=== PATIENT | male | born 1960 | race Caucasian/White ===

== ENCOUNTER 2018-03-24 14:36 | Emergency (ER) | payer OTHER ==
[~2018-03-24 14:36] MED LIST: CARBXR200 PO; DILA100C PO; HYDR-2768 PO; LISI40TA PO; LORT5TAB PO; NEUR600T PO; OMEP20CA5 PO; ROSU20 PO
[2018-03-24 14:43] VITALS: BP 174/99; PULSE 84; RESP 20; TEMP 98.6; O2SAT 98
[2018-03-24] MEDS ORDERED: ZIDOVUDINE 100 MG CAP PO ONE (15:45)
[2018-03-24] MEDS ORDERED: LOPINAVIR/RITONAVIR 200 MG/50 MG TAB PO ONE (15:45)
[2018-03-24] MEDS ORDERED: RETR100C PO (15:48)
[2018-03-24] MEDS ORDERED: LAMI150 PO (15:48)
[2018-03-24] MEDS ORDERED: KALETRA200 PO (15:48)
--- NOTE | 2018-03-24 15:57 | PD ---
HPI Chief Complaint: Exposure to Blood/Body Fluids Time Seen by Provider: 14:51 Travel History International Travel<30 days: No Contact w/Intl Traveler<30days: No Traveled to known affect area: No History of Present Illness HPI 57-year-old male came to the emergency room with history of being accidentally exposed to an open needle at work. Patient works at the [employer] at the [facility]. 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 He was trying to empty the sharps container when he saw something poking out that seem like a tape. He tried to push it down and there was an open needle that punctured his finger. The nurse at the [facility] asked him to come to the emergency room for prophylaxis. Patient says this happened about an hour to 2 hours ago. No history of HIV. The charge nurse called hospice and found out that the patient was hep C positive. He got punctured on his right index finger. PFSH Past Medical History Narrative Medical List of his past medical, surgical, social and family history is reviewed from the nursing note Blood Disorders: No Cancer: No Cardiovascular Problems: Yes High Cholesterol: Yes Diabetes: No Endocrine: No Gastrointestinal Disorders: Yes GERD: Yes Genitourinary: No Headaches: Yes Hypertension: Yes Immune Disorder: No Implanted Vascular Access Dvce: No Musculoskeletal: Yes Neurologic: Yes Psychiatric: No Reproductive: No Respiratory: Yes (PNEUMONIA) Seizures: Yes (epilepsy) Influenza Vaccination: Yes Past Surgical History Abdominal Surgery: Yes (HERNIA REPAIR LEFT) Other Surgery: Yes (HERNIA REPAIR X 2) Social History Alcohol Use: Yes (2 BEERS DAILY) Tobacco Use: No Substance Use: No Allergies-Medications (Allergen,Severity, Reaction): Coded Allergies: No Known Allergies (Verified Allergy, Unknown, 03/24/18) Comments No known drug allergies. Reported Meds & Prescriptions Reported Meds & Active Scripts Active Kaletra (Lopinavir/Ritonavir) 200-50 Mg Tab 2 Tab PO Q12HR Fill this prescription for a 23 day supply of Kaletra ONLY if advised to do so by either Employee Health OR the Emergency Department. Retrovir (Zidovudine) 100 Mg Cap 300 Mg PO Q12HR *Fill this 5 day prescription first and begin taking Retrovir 12 hours after the first dose received in the Emergency Department as prescribed.* Epivir (Lamivudine) 150 Mg Tab 150 Mg PO BID *Fill this prescription for a 23 day supply of Epivir ONLY if advised to do so by either Employee Health OR the Emergency Department.* Kaletra (Lopinavir/Ritonavir) 200-50 Mg Tab 2 Tab PO Q12HR Fill this 5 day prescription first & begin taking Kaletra 12 hours after the first dose received in the Emergency Department as prescribed. Retrovir (Zidovudine) 100 Mg Cap 300 Mg PO Q12HR *Fill this 5 day prescription first and begin taking Retrovir 12 hours after the first dose received in the Emergency Department as prescribed.* Epivir (Lamivudine) 150 Mg Tab 150 Mg PO BID *Fill this 5 day prescription first and begin taking Epivir 12 hours after the first dose received in the Emergency Department as prescribed.* Lortab 5/500 (Acetaminophen/Hydrocodone Bitart) 5 Mg/500 Mg Tab 1-2 Tab PO Q6HPRN Reported Crestor (Rosuvastatin Calcium) 20 Mg Tab 20 Mg PO HS Prinivil 40 mg (Lisinopril) 40 Mg Tab 40 Mg PO DAILY Hctz (Hydrochlorothiazide) 25 Mg Tab 25 Mg PO DAILY Prilosec 20 mg (Omeprazole) 20 Mg Capcr 20 Mg PO DAILY Neurontin (Gabapentin) 600 Mg Tab 600 Mg PO TID Tegretol-Xr (Carbamazepine) 200 Mg Tab 200 Mg PO TID Dilantin Kapseals (Phenytoin Sodium) 100 Mg Cap 100 Mg PO 5 TIMES A DAY Narrative Medication List of his home medications reviewed from the nursing note. Review of Systems Except as stated in HPI: all other systems reviewed are Neg Physical Exam Narrative GENERAL: Awake, alert, no obvious distress SKIN: Focused skin assessment warm/dry. Right index finger is wrapped with Band -Aid HEAD: Atraumatic. Normocephalic. EYES: Pupils equal and round. No scleral icterus. No injection or drainage. ENT: No nasal bleeding or discharge. Mucous membranes pink and moist. NECK: Trachea midline. No JVD. CARDIOVASCULAR: Regular rate and rhythm. No murmur appreciated. RESPIRATORY: No accessory muscle use. Clear to auscultation. Breath sounds equal bilaterally. GASTROINTESTINAL: Abdomen soft, non-tender, nondistended. Hepatic and splenic margins not palpable. MUSCULOSKELETAL: No obvious deformities. No clubbing. No cyanosis. No edema. NEUROLOGICAL: Awake and alert. No obvious cranial nerve deficits. Motor grossly within normal limits. Normal speech. PSYCHIATRIC: Appropriate mood and affect; insight and judgment normal. Data Data Last Documented VS Vital Signs Date Time Temp Pulse Resp B/P (MAP) Pulse Ox O2 Delivery O2 Flow Rate FiO2 03/24/18 14:43 98.6 84 20 174/99 (124) 98 Orders Orders Lamivudine (Epivir) (03/24/18 15:45) Zidovudine (Retrovir) (03/24/18 15:45) Lopinavir-Ritonavir 200-50 Mg (Kaletra 2 (03/24/18 15:45) Ed Discharge Order (03/24/18 15:47) MDM Medical Decision Making Medical Screen Exam Complete: Yes Emergency Medical Condition: Yes Medical Record Reviewed: Yes Differential Diagnosis Needlestick exposure Narrative Course 3:52 PM patient consented to the HIV test and hepatitis profile. He also consented to postexposure prophylaxis. He was given a dose of the medication here and prescriptions to go home with. He needs to see [facility] tomorrow which has been explained to him. Patient is on seizure medications and it is noted that 1 of the medication interacts with Tegretol and phenytoin causing the therapeutic effect of both the medications down. However given the fact that the patient was hep C positive and a chance of HIV chosen to take the risk and give the patient in the medications. He will need to follow-up with [facility]. Procedures EKG Prior to Arrival: No Diagnosis Primary Impression: Needlestick injury accident with exposure to body fluid Referrals: Employ [facility] 1 day Additional Instructions: Follow-up with employee [facility] tomorrow. Take the medication as per the prescription direction. Med/Other Pt SpecificInfo: Prescription(s) given Scripts Lopinavir-Ritonavir (Kaletra) 200-50 Mg Tab 2 TAB PO Q12HR for Mgmt Viral Infection, #92 TAB 0 Refills Fill this prescription for a 23 day supply of Kaletra ONLY if advised to do so by either Employee [facility] OR the Emergency Department. Prov: Ronald Mane MD 03/24/18 Zidovudine (Retrovir) 100 Mg Cap 300 MG PO Q12HR for Mgmt Viral Infection, #27 CAP 0 Refills *Fill this 5 day prescription first and begin taking Retrovir 12 hours after the first dose received in the Emergency Department as prescribed.* Prov: Ronald Mane MD 03/24/18 Lamivudine (Epivir) 150 Mg Tab 150 MG PO BID for Mgmt Viral Infection, #46 TAB 0 Refills *Fill this prescription for a 23 day supply of Epivir ONLY if advised to do so by either Employee Health OR the Emergency Department.* Prov: Ronald Mane MD 03/24/18 Lopinavir-Ritonavir (Kaletra) 200-50 Mg Tab 2 TAB PO Q12HR for Mgmt Viral Infection, #18 TAB 0 Refills Fill this 5 day prescription first & begin taking Kaletra 12 hours after the first dose received in the Emergency Department as prescribed. Prov: Ronald Mane MD 03/24/18 Zidovudine (Retrovir) 100 Mg Cap 300 MG PO Q12HR for Mgmt Viral Infection, #27 CAP 0 Refills *Fill this 5 day prescription first and begin taking Retrovir 12 hours after the first dose received in the Emergency Department as prescribed.* Prov: Ronald Mane MD 03/24/18 Lamivudine (Epivir) 150 Mg Tab 150 MG PO BID for Mgmt Viral Infection, #9 TAB 0 Refills *Fill this 5 day prescription first and begin taking Epivir 12 hours after the first dose received in the Emergency Department as prescribed.* Prov: Ronald Mane MD 03/24/18 Disposition: 01 DISCHARGE HOME Condition: Stable Ronald Mane MD Mar 24, 2018 15:57
== END 2018-03-24 16:16 | disposition home or self-care (01) ==
LOC: PHEFT 14:36
DX: S61.230A Puncture wound without foreign body of right index finger without damage to nail, initial encounter (principal); Z77.21 Contact with and (suspected) exposure to potentially hazardous body fluids; I10 Essential (primary) hypertension; W46.0XXA Contact with hypodermic needle, initial encounter; Y99.0 Civilian activity done for income or pay; Y92.128 Other place in nursing home as the place of occurrence of the external cause
CPT/HCPCS: 99283